=== PATIENT | female | born 1975 | race Caucasian/White ===

== ENCOUNTER → 2016-04-10 | Outpatient (CLI) | payer BC ==
[~2016-04-10] MED LIST: CHOL2000 PO
[2016-04-10 12:45] LABS: THYROID STIMULATING HORMONE 1.65 uIu/ml (0.300-4.500)
== END | disposition home or self-care (01) ==
LOC: C.LABPVFM 08:35
PROVIDERS: ATTEND Internal Medicine Endocrinology, Diabetes & Metabolism
DX: L65.9 Nonscarring hair loss, unspecified (principal)

== ENCOUNTER → 2016-04-18 | Day surgery (SDC) | payer BC ==
[2016-04-18] VITALS (12 sets, daily range): BP systolic 103–125; BP diastolic 63–81; PULSE 52–76; TEMP 36.1–36.9; O2SAT 97–100; Ht 160 cm; Wt 57.0 kg
[~2016-04-18] VITALS: Ht 160 cm; Wt 57.0 kg
[~2016-04-18] MED LIST changes: +ACETAMINOPHEN 500 MG TAB PO PRN
--- NOTE | 2016-04-18 09:37 | DIAGNOSTIC IMAGING REPORT ---
FLUOROSCOPICALLY GUIDED DIAGNOSTIC LUMBAR PUNCTURE CLINICAL HISTORY: demyelinating disorder COMPARISON STUDY: No previous studies for comparison. FINDINGS: A timeout was performed. The risks of the procedure were explained the patient and informed consent was obtained. The patient was prepped and draped in sterile fashion. The skin was anesthetized 1% lidocaine. Under fluoroscopic guidance, a lumbar puncture was performed the L3-4 level. 7 cc of clear CSF was withdrawn under gravity drip. The fluid was 4 tubes and sent for laboratory analysis as specified by the referring clinician. There were no complications. IMPRESSION: Successful lumbar puncture performed at the L3-4 level. 7 cc of clear CSF was withdrawn and sent for laboratory analysis. Electronically signed by: Saud Urias M.D. 04/18/2016 9:35 AM Dictated Date/Time: 04/18/2016 9:34 AM
[2016-04-18 10:02] LABS: CSF TOTAL PROTEIN 30.1 mg/dl (15.0-45.0)
[2016-04-18 10:40] LABS: CSF APPEARANCE CLEAR; CSF COLOR COLORLESS; CSF XANTHOCHROMIC NO XANTHOCHROMIA
--- NOTE | 2016-04-18 10:42 | Discharge Instructions ---
Discharge Instructions Procedure Procedure Date: Apr 18, 2016. Reason for visit: Demylelinating Disorder W/Opening Pressure. Discharge Discharge Date: Apr 18, 2016. Discharge Diagnosis: demylenating disorder Instructions Activity Recommendations: 1 Day-May resume regular activity Return to School/Work: no limitations Recommended Home Diet: Resume Previous Diet Allergies Coded Allergies: No Known Allergies (Unverified , 04/18/16) Ana Luisa Reddy Recommendations: Call your doctor if: * Temperature above 101 degrees * Pain not relieved by pain medicine ordered * There is increased drainage or redness from any incision * You have any unanswered questions or concerns. Your Doctors Instructions noted above were prepared by provider Saud Urias. Patient Signature Section: Patient Instructions Signature Page Suzi Jay Patient (or Guardian) Signature/Date: I have read and understand the instructions given to me by my caregivers. Caregiver/RN/Doctor Signature/Date: The above-named patient and/or guardian has received patient instructions on this date. + Original Patient Signature Page (only) stays with chart. Please make copy for patient.
[2016-04-18 14:22] LABS: LYME DISEASE AB IGG NEG (NEG); LYME DISEASE AB IGM NEG (NEG)
[2016-04-20 13:16] LABS: ANA TITER 1:40 TITER (<1:40)
[2016-04-24 13:38] LABS: ALBUMIN 4.7 g/dL (3.7-5.1); IGG CSF 2.2 mg/dL (0.8-7.7); IGG SERUM 1160 mg/dL (694-1618); LYME DNA PCR CSF OR SYNOVIAL Not detected (Not Detected); LYME DNA SOURCE CSF; LYME IGG CSF NO BANDS DETECTED; LYME IGM CSF NO BANDS DETECTED; MYELIN BASIC PROTEIN 663 <2.0 mcg/L (0.0-4.0)
== END | disposition home or self-care (01) ==
LOC: C.ACU 07:40
PROVIDERS: ATTEND Psychiatry & Neurology Neurology
DX: G37.9 Demyelinating disease of central nervous system, unspecified (principal)

== ENCOUNTER → 2016-04-20 | Outpatient (CLI) | payer BC ==
--- NOTE | 2016-04-18 09:32 | Discharge Instructions ---
Discharge Instructions Procedure Procedure Date: Apr 18, 2016. Reason for visit: Numbness/Tingling Rt Arm,Rt Foot Numbness/R/O Ms. Discharge Discharge Date: Apr 18, 2016. Discharge Diagnosis: numbness, tingling R/O demyelinating dz. Instructions Activity Recommendations: 1 Day-May resume regular activity Return to School/Work: no limitations Recommended Home Diet: Resume Previous Diet Allergies Coded Allergies: No Known Allergies (Unverified , 04/18/16) Ana Luisa Reddy Recommendations: Call your doctor if: * Temperature above 101 degrees * Pain not relieved by pain medicine ordered * There is increased drainage or redness from any incision * You have any unanswered questions or concerns. Your Doctors Instructions noted above were prepared by provider Saud Urias. Patient Signature Section: Patient Instructions Signature Page Suzi Jay Patient (or Guardian) Signature/Date: I have read and understand the instructions given to me by my caregivers. Caregiver/RN/Doctor Signature/Date: The above-named patient and/or guardian has received patient instructions on this date. + Original Patient Signature Page (only) stays with chart. Please make copy for patient.
[~2016-04-20] MED LIST changes: +GADAVIST IV PRN
--- NOTE | 2016-04-20 16:36 | DIAGNOSTIC IMAGING REPORT ---
THORACIC SPINE MRI WITH AND WITHOUT CONTRAST HISTORY: NUMBNESS/TINGLING RT ARM,RT FOOT NUMBNESS/R/O MS TECHNIQUE: Multiplanar multisequence MRI of the thoracic spine was performed both before and after the intravenous administration of contrast. COMPARISON: Cervical spine MRI 04/05/2016. FINDINGS: Alignment and curvature are intact. No fracture or subluxation. No significant central canal or neural foraminal narrowing. There are two T2 hyperintense foci within the upper thoracic spinal cord at the T3 and T4 levels. These measure 12 mm and 4 mm, respectively. These remain unchanged from the prior cervical spine MRI. These do not demonstrate enhancement on the postcontrast sequences. No additional thoracic spinal cord lesions identified. Paraspinal soft tissues are unremarkable. IMPRESSION: 1. No significant change in the T2 hyperintense foci within the upper thoracic spinal cord. No abnormal enhancement at this time. These favor foci of demyelination. Follow can be performed to ensure stability. 2. No additional thoracic spinal cord lesions identified. Electronically signed by: Ezra Wills M.D. 04/20/2016 4:34 PM Dictated Date/Time: 04/20/2016 4:28 PM
== END | disposition home or self-care (01) ==
LOC: C.MRI 15:35
PROVIDERS: ATTEND Internal Medicine Cardiovascular Disease
DX: R20.2 Paresthesia of skin (principal); R20.0 Anesthesia of skin